=== PATIENT | male | born 1990 | race Caucasian/White ===

== ENCOUNTER 2020-07-12 19:15 | Emergency (ER) | payer OTHER ==
[~2020-07-12] VITALS: Ht 175.3 cm; Wt 109.1 kg
[2020-07-12 19:25] VITALS: BP 140/90
== END 2020-07-12 21:10 | disposition left against medical advice (07) ==
LOC: EMS 19:18
DX: M25.562 Pain in left knee (principal); Z53.21 Procedure and treatment not carried out due to patient leaving prior to being seen by health care provider

== ENCOUNTER 2021-10-31 01:52 | Emergency (ER) | payer OTHER ==
[~2021-10-31] VITALS: Ht 177.8 cm; Wt 100.0 kg
[2021-10-31 02:34] VITALS: BP 146/78
== END 2021-10-31 04:12 | disposition left against medical advice (07) ==
LOC: EMS 01:55
DX: Z53.21 Procedure and treatment not carried out due to patient leaving prior to being seen by health care provider (principal)

== ENCOUNTER 2022-05-10 16:13 | Emergency (ER) | payer OTHER ==
[~2022-05-10] VITALS: Ht 177.8 cm; Wt 95.5 kg
[2022-05-10 16:18] VITALS: BP 130/79
[2022-05-10] MEDS ORDERED: LIDOCAINE 1% 10 ML VIAL SQ ONE (17:30)
== END 2022-05-10 18:00 | disposition home or self-care (01) ==
LOC: EMS 16:15
DX: S61.411A Laceration without foreign body of right hand, initial encounter (principal); E78.00 Pure hypercholesterolemia, unspecified; F10.20 Alcohol dependence, uncomplicated; W45.8XXA Other foreign body or object entering through skin, initial encounter; Y93.89 Activity, other specified; Y92.89 Other specified places as the place of occurrence of the external cause; Y99.8 Other external cause status
CPT/HCPCS: 99282; 12001; J3490